=== PATIENT | male | born 1955 | race Caucasian/White ===

== ENCOUNTER → 2020-01-08 11:05 | Outpatient (CLI) | payer SELFPAY ==
[2020-01-08 13:01] LABS: AST(SGOT) 18 U/L (15-37); Alanine Aminotransfer ALT/SGPT 34 U/L (16-61); Cholesterol 248 mg/dL (200); GGTP 158 U/L (15-85); High Density Lipoprotein 52 mg/dL; Triglycerides 186 mg/dL; Very Low Density Lipoprotein 37 mg/dL (5-40)
== END ==
PROVIDERS: PCP Family Medicine; Referring Provider Family Medicine; Visit Provider Family Medicine
DX: E78.5 Hyperlipidemia, unspecified (principal)
CPT/HCPCS: 36415; 80061; 82977; 84450; 84460

== ENCOUNTER → 2020-01-13 08:45 | Outpatient (CLI) | payer OTHER, SELFPAY ==
--- NOTE | 2020-01-13 08:55 | US_ITS ---
STUDY: ABDOMINAL ULTRASOUND - RIGHT UPPER QUADRANT REASON FOR VISIT: Male, 64 years old HYPERCHOLESTEREMIA TECHNIQUE: Ultrasound evaluation of the right upper quadrant was performed with real-time and static verde-scale imaging. TECHNICAL QUALITY: Adequate. COMPARISON: None. FINDINGS: Liver: The liver measures 15.9 cm. There is increased echogenicity consistent with fatty infiltration. The bile ducts are within normal limits. There is hepatic color flow. The direction of portal flow is hepatopetal. There is no demonstrated mass lesion. Gallbladder: Normal distended gallbladder. The gallbladder wall measures 3.2 mm. There is a negative sonographic Wells''s sign. There is no pericholecystic fluid. There are no gallstones. Common Bile Duct (C.B.D.): The common bile duct measures 5.5 mm. Pancreas: Normal size of the head, body and tail of the pancreas. There is normal echogenicity of the pancreas. There is no demonstrated pancreatic mass or cyst. Right Kidney: Normal size of the right kidney. The right kidney measures 9.8 cm x 4.4 cm x 5.5 cm. Normal renal cortex. The right cortex measures 1.5 cm. There is no demonstrated renal mass or cyst. There is no right hydronephrosis. US/Abdomen Limited IMPRESSION: Fatty infiltration of the liver. Electronically Signed: Lamin Jackson, at 14:04 EST , Service support ,
== END ==
PROVIDERS: PCP Family Medicine; Referring Provider Family Medicine; Visit Provider Family Medicine
DX: K76.0 Fatty (change of) liver, not elsewhere classified (principal); E78.00 Pure hypercholesterolemia, unspecified
CPT/HCPCS: 76705

== ENCOUNTER → 2020-02-02 10:34 | Outpatient (CLI) | payer OTHER, SELFPAY ==
[2017-12-02 18:43] VITALS: BMI 29.2
[2020-02-02 11:36] LABS: PSA,Total- Diagnostic 1.57 ng/mL (0.0-4.0)
== END ==
PROVIDERS: PCP Family Medicine; Referring Provider Urology; Visit Provider Urology
DX: N40.1 Benign prostatic hyperplasia with lower urinary tract symptoms (principal)
CPT/HCPCS: 36415; 84153

== ENCOUNTER → 2020-03-17 14:10 | Outpatient (CLI) | payer OTHER, SELFPAY ==
[2017-12-02 18:43] VITALS: BMI 29.2
[2020-03-17 15:38] LABS: Anion Gap 6 (5-15); BUN 21 mg/dL (7-18); BUN/Creat Ratio 21.4 RATIO (10-20); Calcium,Total 8.6 mg/dL (8.5-10.1); Chloride 107 mmol/L (98-107); Creatinine, Serum 0.98 mg/dL (0.70-1.30); EST Glomerular Filtration Rate 82 mL/min (>60); Est Glom Filt Rate - Afr Amer 99 mL/min (>60); Glucose 88 mg/dL (74-106); Potassium 4.1 mmol/L (3.5-5.1); Sodium Level 142 mmol/L (136-145)
== END ==
PROVIDERS: PCP Family Medicine; Referring Provider Family Medicine; Visit Provider Family Medicine
DX: M79.604 Pain in right leg (principal)
CPT/HCPCS: 36415; 80048

== ENCOUNTER → 2020-03-30 15:35 | Outpatient (CLI) | payer OTHER, SELFPAY ==
--- NOTE | 2020-03-30 15:40 | VDLE_ITS ---
Reason For Study: Pain RIGHT LEFT GSV is normal. CFV is compressible, spontaneous, phasic, CFV is compressible, spontaneous, phasic, competent, and demonstrates normal competent and demonstrates normal augmentation. augmentation. FV is compressible, spontaneous, phasic, competent and demonstrates normal augmentation. POP V is compressible, spontaneous, phasic, competent and demonstrates normal augmentation. T/P Trunk is compressible. PTV is compressible. RT PerV is compressible. Procedure Exam performed in department. A preliminary report was called and/or faxed to [facility]. Interpretation Summary Deep veins of the right lower extremity are patent and compressible segmentally. There is no evidence of right lower extremity deep vein thrombosis. Valvular competence appears intact within the proximal deep venous system on the right . The right great saphenous vein appears patent and compressible segmentally. Ordering Physician: Briana Castellano Referring Physician: Briana Castellano Performed By: Kayla Hermosillo RVT
--- NOTE | 2020-03-30 15:55 | RAD_ITS ---
STUDY: X-RAY - RIGHT KNEE REASON FOR EXAM: Male, 65 years old. PATIENT DONE UPRIGHT WEIGHT BEARING -- PAIN IN RIGHT LEG 3 WEEKS. ESPECIALLY IN LOWER LEG POSTERIORLY NO INJURY ALSO DOPPLER US TODAY TECHNIQUE: 5 view(s) of the knee. COMPARISON: None. FINDINGS: Normal visualized distal femur. Normal visualized proximal tibia and fibula. Normal proximal tibiofibular articulation. Normal medial femorotibial compartment. Normal lateral femorotibial compartment. Normal patellofemoral articulation. The soft tissue structures are unremarkable. RAD/Knee 3 Views IMPRESSION: Normal x-ray examination of the knee. Electronically Signed: Naga Luther MD at 16:55 EDT , Service support ,
== END ==
PROVIDERS: PCP Family Medicine; Referring Provider Family Medicine; Visit Provider Family Medicine
DX: M79.604 Pain in right leg (principal)
CPT/HCPCS: 73560; 73562; 93971

== ENCOUNTER 2020-04-05 09:56 | Emergency (ER) | payer OTHER, SELFPAY ==
[2020-04-05 09:57] VITALS: BP 185/141; PULSE 107; RESP 20; TEMP 36.6; O2SAT 96; BMI 26.2
--- NOTE | 2020-04-05 10:17 | MRI_ITS ---
STUDY: MRI LUMBAR SPINE WITHOUT CONTRAST REASON FOR EXAM: Male, 65 years old. RIGHT leg pain, low back pain TECHNIQUE: Standardized fat and water weighted pulse sequences were obtained in the sagittal and axial planes. COMPARISON: None FINDINGS: T12-L1: Normal endplates. Normal disc height, hydration and morphology. Normal bilateral facet joints. Normal central canal and bilateral lateral recesses. Normal bilateral intervertebral neural foramina. Normal lumbar lordosis. There is no substantial scoliosis. Normal conus medullaris that terminates at the T12/L1. L1-2: Normal endplates. Normal disc height, hydration and morphology. Normal bilateral facet joints. Normal central canal and bilateral lateral recesses. Normal bilateral intervertebral neural foramina. L2-3: Disc desiccation but no disc protrusion, spinal stenosis, or neural foraminal stenosis. L3-4: Normal endplates. Normal disc height, hydration and morphology. Normal bilateral facet joints. Normal central canal and bilateral lateral recesses. Normal bilateral intervertebral neural foramina. L4-5: Mild broad disc protrusion produces mild spinal stenosis but no neural foraminal stenosis. L5-S1: Mild bilateral facet hypertrophy and ligament flavum hypertrophy. Mild broad disc protrusion with a 1.0 x 1.2 cm inferiorly extending disc extrusion/sequestration in the right lateral recess produces a severe right lateral recess stenosis with effacement of the right S1 nerve root and the right S2 nerve root. Normal visualized sacral ala. Normal visualized paraspinous soft tissue structures. MRI/Spine Lumbar (Routine) IMPRESSION: Large inferiorly extending right paracentral disc extrusion/sequestration produces severe right lateral recess stenosis with effacement of the right S1 and S2 nerve roots. Electronically Signed: Ever Haney MD at 15:43 EDT Tel , Service support ,
[2020-04-05 10:38] LABS: Absolute Lymphocyte Count 1.54 X10^3/uL (0.83-4.51); Absolute Neutrophil Count 6.2 X10^3/uL (2.0-7.7); Basophil# 0.04 X10^3/uL; Basophil% 0.5 % (0-1); Eosinophil# 0.04 X10^3/uL; Eosinophils% 0.5 % (0-5); Hematocrit 43.6 % (40-54); Hemoglobin 15.6 g/dL (13.0-16.5); Lymphocyte # 1.54 X10^3/ul (4.0); Lymphocyte % 17.6 % (19-41); Mean Corp Hgb Conc 35.8 g/dL (32-36); Mean Corpuscular Hgb 31.8 pg (27.0-32.0); Mean Corpuscular Volume 88.8 fL (80-94); Mean Platelet Vol. 9.2 fl (6.2-12.0); Monocyte# 0.87 X10^3/uL; Monocyte% 9.9 % (0-10); NRBC Flagged by Analyzer 0 % (0-5); Neutrophil # 6.24 X10^3/uL (2.7-7.7); Neutrophil % 71.2 % (47-70); Platelet Count 252 K/mm3 (150-450); RBC Distribution Width CV 12.5 % (11.6-14.6); RBC Distribution Width SD 40.4 fl (35.1-43.9); Red Blood Count 4.91 M/mm3 (4.6-6.2); White Blood Count 8.8 K/mm3 (4.4-11.0)
[2020-04-05] MEDS: Morphine 4 MG/ML Syringe IV (10:42)
[2020-04-05 10:43] VITALS: BP 114/90
[2020-04-05 10:51] LABS: Anion Gap 7 (5-15); BUN 22 mg/dL (7-18); BUN/Creat Ratio 19.3 RATIO (10-20); Calcium,Total 8.7 mg/dL (8.5-10.1); Chloride 109 mmol/L (98-107); Creatinine, Serum 1.14 mg/dL (0.70-1.30); EST Glomerular Filtration Rate 69 mL/min (>60); Est Glom Filt Rate - Afr Amer 83 mL/min (>60); Estimated Creatinine Clearance 79.27 ml/min; Glucose 103 mg/dL (74-106); Potassium 3.6 mmol/L (3.5-5.1); Sodium Level 144 mmol/L (136-145)
--- NOTE | 2020-04-05 13:26 | ED.VIS.GEN ---
History of Present Illness Chief Complaint: Lower Extremity Injury Narrative: 65-year-old male presents with right lower extremity pain. He has a history of this for the past month. It started when he sat up quickly from the toilet seat. Not suffer any falls or direct trauma. It is mostly in his right buttock but radiates down the entire right lower extremity all the way into his feet. He does not have claudication. He can still ambulate without difficulty. He has no paresthesias. No fever or lower extremity weakness. He has chronic urinary retention issues but states that they are not worse. He actually had a scope yesterday to investigate this. He has no history of vascular issues. He had a negative DVT ultrasound. He does not have paresthesias or weakness. Him onset has been gradual. Severity is moderate. Past Medical History - Allergies and Home Meds Allergies/Adverse Reactions: Allergies No Known Allergies Allergy (Verified 04/05/20 10:00) Primary Care Physician: Briana Castellano MD [Primary Care Provider] - Prior records reviewed: Yes Surgical History: - - Thymectomy, tonsillectomy. Smoking Status: Never smoker - Family History Maternal Family History: Reports: Diabetes, Heart Disease, Hypertension Paternal Family History: Reports: Diabetes, Heart Disease, Hypertension Review of Systems General: Denies: Chills, Fever, Sweats Eyes: Denies: Visual changes - bilaterally, Diplopia ENT: Denies: Rhinorrhea, Sore throat Cardiovascular: Denies: Chest pain, Palpitations Respiratory: Denies: Dyspnea, Cough, Dyspnea on exertion Gastrointestinal: Denies: Abdominal pain, Nausea, Vomiting, Diarrhea, Melena, Hematochezia Genitourinary: Denies: Dysuria, Hematuria, Frequency Musculoskeletal: Reports: Back pain, Extremity Pain Skin: Denies: Rash, Wounds Neurological: Denies: Headache, Weakness, Numbness Physical Exam Vital Signs/Narrative: Vital Signs Temp Pulse Resp BP Pulse Ox 04/05/20 10:43 114/90 H 04/05/20 09:57 98 F 107 H 20 H 185/141 H 96 General: Well nourished, Well developed, Acute Distress Head: Normocephalic, Atraumatic Eyes: Perrl, EOMI ENT: Moist mucous membranes, No rhinorrhea Neck: Supple, Nontender Cardiovascular: Regular rate, Regular rhythm, No murmurs Respiratory: No distress, CTA bilaterally, Chest nontender Abdomen: Soft, Nontender, Nondistended, Normal bowel sounds Back: Nontender, Normal Inspection, - - Does have paraspinal lumbar tenderness worse on the right. Positive straight leg raise. Extremities: Nontender, No edema Skin: Normal color, No rash, - - There is no tenderness on palpation. Compartments are soft. Strong distal pulses. Skin normal color in temperature. Appears to be perfusing well. Positive straight leg raise on the right. Neurological: Alert, Oriented x3, Cranial nerves II-XII grossly intact, Normal Strength, Normal Sensation Psychological: Normal affect, Normal Mood Diagnostic/Tx/Re-eval - Medical Decision Making Labs are within normal limits. He has no claudication. He has strong pulses and skin is normal color and temperature. This does not sound like an acute ischemic event or thrombosis in situ. There is no evidence of cellulitis. Compartments are all soft. Pain is not reproducible on palpation of the lower extremities. By description, it sounds like disc pathology. Because of his urinary issue and the severity of his pain, I did feel that an MRI was indicated. I ordered the MRI here and he was able to be placed into the schedule. He was given IV fluids and morphine for pain. On reexamination, he is feeling much better. Neurologic exam is normal. The MRI results are pending and will be checked by the oncoming physician. He is still feeling better at the time of my most recent examination. If the MRI is negative for cord compression or other acute pathology, I feel that he can safely be discharged home on pain medication to follow-up with either orthopedics or neurosurgery. ED Disposition - Plan for ED Patient: Referrals: Briana Castellano MD [Primary Care Provider] -
[2020-04-05 14:00] VITALS: BP 132/90; PULSE 86; RESP 18; O2SAT 98
--- NOTE | 2020-04-05 15:55 | ED.VIS.GEN ---
History of Present Illness Chief Complaint: Lower Extremity Injury Past Medical History - Allergies and Home Meds Allergies/Adverse Reactions: Allergies No Known Allergies Allergy (Verified 04/05/20 10:00) Primary Care Physician: Briana Castellano MD [Primary Care Provider] - Surgical History: - - Thymectomy, tonsillectomy. Smoking Status: Never smoker - Family History Maternal Family History: Reports: Diabetes, Heart Disease, Hypertension Paternal Family History: Reports: Diabetes, Heart Disease, Hypertension ED Disposition - Plan for ED Patient: Disposition: Home or Assisted Living Diagnosis: Sciatica of right side, Protruded lumbar disc Instructions: ED LUMBAR RADICULOPATHY Prescriptions: MethylPREDNISolone DosePak [Medrol DosePak] 4 mg PO UD #1 box Oxycodone HCl/Acetaminophen [Percocet 5/325] 1 tablet PO Q6H PRN PRN 3 Days #12 tablet PRN Reason: Pain Tizanidine HCl [Zanaflex] 4 mg PO TID 7 Days #20 tablet Referrals: July Corral MD [STAFF PHYSICIAN] - As soon as possible
--- NOTE | 2020-04-05 17:13 | ED.DEP ---
ED Disposition - Plan for ED Patient: Disposition: Home or Assisted Living Diagnosis: Sciatica of right side, Protruded lumbar disc Instructions: ED LUMBAR RADICULOPATHY Prescriptions: MethylPREDNISolone DosePak [Medrol DosePak] 4 mg PO UD #1 box Prescription Printed Oxycodone HCl/Acetaminophen [Percocet 5/325] 1 tab PO Q6H PRN PRN 3 Days #12 tab PRN Reason: Pain Prescription Printed Tizanidine HCl [Zanaflex] 4 mg PO TID 7 Days #20 tab Prescription Printed Referrals: Jordan Louise MD [NON-STAFF] - 3-5 Days
--- NOTE | 2020-04-05 17:16 | ED.DCSUM_ITS ---
- ER Visit Summary Date of Service: 04/05/20 Chief Complaint: [Addendum to initial dictation by Dr. Lockett ] History of Present Illness: The patient is a 65 M [presented with pain in his back and right leg x1 month that has been, more severe over the last 2 days. Patient states pain initially started when he stood up off the toilet. Patient was fully evaluated in the department and was medicated with morphine on arrival. Patient had an MRI of his back that showed a central disc protrusion with compression of the S1-S2 nerve roots. I was asked to speak with neurosurgeon front desk person prior to patient's discharge. I did discuss case with Dr. Louise who was covering for neurosurgery at [facility]. Given the patient's history and MRI results it was felt patient can follow-up as an outpatient. Patient is comfortable with this and states that he would prefer not to be admitted. He had good pain relief with morphine.] Physical Examination: [] Test Results: [] Emergency Department Course and Treatment: [] Treatment Plan: [Follow-up as outpatient with neurosurgery Dr. Louise. Patient will be started on a Medrol Dosepak as well as Percocet and Zanaflex] Disposition: [Discharged home in stable condition] Impression: [Lumbar radiculopathy] This note was generated with [employer] dictation software. It may contain incorrect words, spelling, and punctuation that were not noted in review of the chart prior to signing ED Disposition - Plan for ED Patient: Disposition: Home or Assisted Living Diagnosis: Sciatica of right side, Protruded lumbar disc Instructions: ED LUMBAR RADICULOPATHY Prescriptions: MethylPREDNISolone DosePak [Medrol DosePak] 4 mg PO UD #1 box Prescription Printed Oxycodone HCl/Acetaminophen [Percocet 5/325] 1 tab PO Q6H PRN PRN 3 Days #12 tab PRN Reason: Pain Prescription Printed Tizanidine HCl [Zanaflex] 4 mg PO TID 7 Days #20 tab Prescription Printed Referrals: Jordan Louise MD [NON-STAFF] - 3-5 Days
== END 2020-04-05 17:40 | disposition home or self-care (01) ==
PROVIDERS: Emergency Provider Emergency Medicine; PCP Family Medicine
DX: M51.16 Intervertebral disc disorders with radiculopathy, lumbar region (principal); M48.061 Spinal stenosis, lumbar region without neurogenic claudication
CPT/HCPCS: 72148; 80048; 85025; 96374; 99283; A4216

== ENCOUNTER 2021-02-03 09:50 | Outpatient (RCR) | payer OTHER, SELFPAY ==
[2021-02-03] MEDS: COVID-19 VACC, MRNA(PFIZER)/PF 30 MCG/0.3 ML SYRINGE IM (13:19)
[2021-02-24] MEDS: COVID-19 VACC, MRNA(PFIZER)/PF 30 MCG/0.3 ML SYRINGE IM (13:18)
== END 2021-05-02 23:59 ==
LOC: IMMUN 09:50
PROVIDERS: PCP Family Medicine; Referring Provider Family Medicine; Visit Provider Family Medicine
DX: Z23 Encounter for immunization (principal)
CPT/HCPCS: 0001A; 0002A; 91300